=== PATIENT | female | born 1975 | race Caucasian/White ===

== ENCOUNTER 2018-11-15 01:21 | Emergency (ER) | payer MEDICAID ==
[~2018-11-15] VITALS: Ht 152.4 cm; Wt 80.3 kg
[2018-11-15 01:37] VITALS: BP 133/79
--- NOTE | 2018-11-15 01:43 | NUR ---
PT AMBULATED TO BED 6. PROVIDED WITH URINE CUP.
[2018-11-15] MEDS ORDERED: ACETAMINOPHEN 325 MG TAB PO ONE (01:45)
[2018-11-15] MEDS ORDERED: NACL 0.9% 1,000 ML IV ONE (01:45)
--- NOTE | 2018-11-15 01:45 | NUR ---
PT CAME INTO ER WITH C/O OF COUGH AND CONGESTION X 2 DAYS. PT STATED THAT SHE WENT TO THE CLINIC YESTERDAY AND WAS GIVEN MEDICATION BUT STATES SHE HAS NO RELIEF. PT HAS A HEADACHE, PAIN LEVEL 8/10 AT THIS TIME. PT IS A/OX4. ER MD MADE AWARE OF STATUS, SAFETY MEASURES IN PLACE. BED RAILS UP X 1.
--- NOTE | 2018-11-15 01:50 | NUR ---
FLU SWAB WAS DONE TP PT. PT TOLERATED WELL. SPECIMEN WAS SENT TO LAB.
--- NOTE | 2018-11-15 01:52 | NUR ---
DR. JOE EVALUATING PT BEDSIDE
[2018-11-15 02:19] LABS: BASOPHILS % (AUTO) 0.3 % (0.0-2.0); EOSINOPHILS % (AUTO) 0.2 % (0.0-4.0); HEMATOCRIT 40.9 % (36-48); HEMOGLOBIN 13.6 g/dL (12.0-16.0); LYMPHOCYTES # (AUTO) 1.4 K/uL (2.5-16.5); LYMPHOCYTES % (AUTO) 12.4 % (20.5-51.1); MEAN CORPUSCULAR HEMOGLOBIN 29 pg (27-31); MEAN CORPUSCULAR HGB CONC 33 g/dL (33-37); MEAN CORPUSCULAR VOLUME 87.5 fL (80-94); MONOCYTES % (AUTO) 8.9 % (1.7-9.3); NEUTROPHILS # (AUTO) 8.7 K/uL (1.8-7.7); NEUTROPHILS % (AUTO) 78.2 % (42.2-75.2); PLATELET COUNT (AUTO) 261 K/uL (140-450); RED BLOOD CELL COUNT(AUTO) 4.67 MIL/uL (4.20-5.40); RED CELL DISTRIBUTION WIDTH 13.4 % (11.6-13.7); WHITE BLOOD COUNT (AUTO) 11.1 K/uL (4.8-10.8)
[2018-11-15 02:20] LABS: APPEARANCE,URINE CLEAR (CLEAR); BILIRUBIN,URINE NEGATIVE (NEGATIVE); BLOOD, URINE TRACE-I (NEGATIVE); COLOR,URINE YELLOW (YELLOW); LEUKOCYTE ESTERASE ,URINE TRACE (NEGATIVE); NITRITE, URINE NEGATIVE (NEGATIVE); UGLUCOSE NEGATIVE (NEGATIVE)
[2018-11-15 02:39] LABS: RBC,URINE 0-5 /HPF (0-5)
[2018-11-15 02:58] LABS: ALBUMIN 3.6 g/dL (3.4-5.0); CREATININE 0.9 mg/dL (0.6-1.3); TOTAL BILIRUBIN 0.3 mg/dL (0.0-1.0)
[2018-11-15 03:03] LABS: POTASSIUM 3.4 mmol/L (3.5-5.1)
[2018-11-15 03:04] LABS: ANION GAP 16.4 (8-16)
[2018-11-15 03:25] VITALS: BP 134/74
--- NOTE | 2018-11-15 03:25 | NUR ---
Patient discharged with v/s stable. Written and verbal after care instructions given and explained. Patient alert, oriented and verbalized understanding of instructions. Ambulatory with steady gait. All questions addressed prior to discharge. ID band removed. Patient advised to follow up with PMD. Rx of NORCO AND ZOFRAN given. Patient educated on indication of medication including possible reaction and side effects. Opportunity to ask questions provided and answered.
== END 2018-11-15 03:25 | disposition home or self-care (01) ==
LOC: MED 01:21
DX: R05 Cough (principal); R50.9 Fever, unspecified; R51 Headache
CPT/HCPCS: 36415; 71045; 80053; 81001; 85025; 87086; 87804; 99284; J7030; Q0092

== ENCOUNTER 2020-01-15 09:48 | Inpatient (IN) | payer MEDICAID, SELFPAY ==
[~2020-01-15] VITALS: Ht 160 cm; Wt 64.4 kg
[2020-01-15 09:55] VITALS: BP 147/79
[2020-01-15] MEDS ORDERED: KETOROLAC 30 MG/ML VIAL IVP ONE (10:20)
--- NOTE | 2020-01-15 10:40 | NUR ---
RSV, FLU, AND COVID SWAB SENT TO LAB
[2020-01-15 11:09] LABS: BASOPHILS # (AUTO) 0.1 K/uL (0.00-0.22); EOSINOPHILS % (AUTO) 0.1 % (0.0-4.0); HEMATOCRIT 40.2 % (36-48); HEMOGLOBIN 13.3 g/dL (12.0-16.0); LYMPHOCYTES # (AUTO) 1.5 K/uL (2.5-16.5); LYMPHOCYTES % (AUTO) 15.1 % (20.5-51.1); MEAN CORPUSCULAR HEMOGLOBIN 30 pg (27-31); MEAN CORPUSCULAR HGB CONC 33 g/dL (33-37); MEAN CORPUSCULAR VOLUME 88.8 fL (80-94); MONOCYTES # (AUTO) 0.8 K/uL (0.8-1.0); MONOCYTES % (AUTO) 8.2 % (1.7-9.3); NEUTROPHILS # (AUTO) 7.6 K/uL (1.8-7.7); NEUTROPHILS % (AUTO) 75.6 % (42.2-75.2); PLATELET COUNT (AUTO) 216 K/uL (140-450); RED BLOOD CELL COUNT(AUTO) 4.52 MIL/uL (4.20-5.40); RED CELL DISTRIBUTION WIDTH 13.9 % (11.6-13.7); WHITE BLOOD COUNT (AUTO) 10.1 K/uL (4.8-10.8)
--- NOTE | 2020-01-15 11:10 | NUR ---
44 YEAR OLD FEMALE COMPLAINS OF SHORTNESS OF BREATHE X 1 WEEK. PT STATES ALSO THIS MORNING SHE STARTED TO HAVE CHEST PAIN AND FEVER. PT STATES SHE TOOK IBUPROFEN PRIOR TO ARRIVAL. PT AOX4, BREATHING EVEN AND UNLABORED, SKIN WARM AND DRY. BED IN LOWEST POSITION, LOCKED, BED RAIL UPX1. PMH - ASTHMA ALLERGIES - NKA
[2020-01-15 11:18] LABS: APPEARANCE,URINE HAZY (CLEAR); BILIRUBIN,URINE NEGATIVE (NEGATIVE); BLOOD, URINE 1+ (NEGATIVE); COLOR,URINE DARK YELLOW (YELLOW); LEUKOCYTE ESTERASE ,URINE 1+ (NEGATIVE); NITRITE, URINE NEGATIVE (NEGATIVE); UGLUCOSE NEGATIVE (NEGATIVE)
[2020-01-15 11:22] LABS: LACTATE DEHYDROGENASE 165 U/L (81-234)
[2020-01-15 11:23] LABS: PROTHROMBIN TIME 9.9 secs (10.8-13.4)
[2020-01-15 11:29] LABS: ALBUMIN 3.3 g/dL (3.4-5.0); ANION GAP 17.1 (8-16); CARBON DIOXIDE 22.8 mmol/L (21-32); CREATININE 1.1 mg/dL (0.6-1.3); TOTAL BILIRUBIN 0.3 mg/dL (0.0-1.0)
[2020-01-15 11:33] LABS: POTASSIUM 2.9 mmol/L (3.5-5.1)
--- NOTE | 2020-01-15 11:33 | NUR ---
potassium 2.9, lactic acid 2.1-- critical value received from lab. Dr Thrasher made aware
[2020-01-15] MEDS ORDERED: POTASSIUM CHLORIDE 10 MEQ TABER PO ONE (11:35)
[2020-01-15 11:37] LABS: C-REACTIVE PROTEIN QUANT 3.7 mg/dL (0.0-0.9); RSV NEGATIVE (NEGATIVE)
--- NOTE | 2020-01-15 12:00 | NUR ---
pt alert and awake, breathing even and unlabored
[2020-01-15] MEDS ORDERED: LEVOFLOXACIN 500 MG/D5W PREMIX 100 ML IV ONE ×2 (12:05→12:25)
[2020-01-15] MEDS ORDERED: MORPHINE SULFATE 2 MG/ML SYR IVP ONE (12:25)
[2020-01-15] MEDS ORDERED: metroNIDAZOLE 500 MG/NS PREMIX 100 ML IV ONE (12:25)
[2020-01-15 12:41] LABS: RBC,URINE 0-5 /HPF (0-5)
[2020-01-15] MEDS ORDERED: HYDROcodone/APAP 7.5/325 MG 1 TAB PO PRN (14:00)
[2020-01-15] MEDS ORDERED: ONDANSETRON 4 MG/2 ML VIAL IM/IVP PRN (14:00)
[2020-01-15] MEDS ORDERED: DOCUSATE SODIUM 100 MG GELCAP PO PRN (14:00)
[2020-01-15] MEDS ORDERED: ZOLPIDEM 5 MG TAB PO PRN (14:00)
--- NOTE | 2020-01-15 14:00 | NUR ---
pt alert and awake, breathing even and unlabored. on phone
[2020-01-15] MEDS: NACL 0.9% 1,000 ML IV SCH (14:22)
[2020-01-15 14:37] LABS: CHOL/HDL RATIO 3.8 (1-4.5); FREE T4 (FREE THYROXINE) 0.88 ng/dL (0.76-1.46); MAGNESIUM 1.7 mg/dL (1.8-2.4); PHOSPHORUS 2.6 mg/dL (2.5-4.9); THYROID STIMULATING HORMONE 1.55 uIU/mL (0.34-3.74)
[2020-01-15 14:43] LABS: BARBITURATE, URINE NEGATIVE ng/ml (NEG <=200); BENZODIAZEPINE, URINE NEGATIVE ng/mL (NEG <=200); CANNABINOID, URINE NEGATIVE ng/mL (NEG <=50); COCAINE, URINE NEGATIVE ng/mL (NEG <=300); OPIATE, URINE NEGATIVE ng/mL (NEG <=2000); PHENCYCLIDINE SCREEN,URINE NEGATIVE ng/mL (NEG <=25)
[2020-01-15 16:00] VITALS: BP 148/73
--- NOTE | 2020-01-15 16:00 | NUR ---
RECEIVED PATIENT FROM ED NURSE FOR ADMISSION AND CONTINUITY OF CARE. HEAD TO TOE ASSESSMENT. AAOX4, GERMAN SPEAKING. RESPIRATIONS EVEN AND UNLABORED, ROOM AIR. RESP 24. DENIES SOB. VISIBLE CHEST RISE AND FALL NOTED. ON TELE MONITORING. ABD SOFT AND NONTENDER. REGULAR DIET. SKIN WARM, DRY, AND INTACT. IV IN THE RIGHT FA G20 RUNNING NS AT 80 ML/HR. IVF RUNNING WELL. AMBULATORY. SAFETY MEASURES IN PLACE. DROPLET PRECAUTION FOR COVID-19 R/O. BED IN LOW POSITION. CALL LIGHT IS WITHIN REACH. WILL CONTINUE TO MONITOR.
--- NOTE | 2020-01-15 16:00 | NUR ---
Patient will be admitted to care of Dr Pickard. Admited to tele. Will go to room 102B. Belongings list completed. Report to Princess UNDERWOOD.
--- NOTE | 2020-01-15 16:05 | NUR ---
BP IS 148/73, HR 90, O2SAT 99% RA, TEMP 98.9 TEMPORAL, RESP 24, UNLABORED. DENIES PAIN. DENIES SOB. MRSA NARES SWAB COLLECTED. GIVEN 2 APPLE JUICES AND WARM BLANKET.
--- NOTE | 2020-01-15 17:00 | NUR ---
Note ajay in ED - 01/15/20 at 1736 by MARTI Patient will be admitted to care of Dr Pickard. Admited to tele. Will go to room 102B. Belongings list completed. Report to Princess UNDERWOOD.
[2020-01-15] MEDS ORDERED: ALBUTEROL HFA MDI 90 MCG/ACTUATION 8 GM INH PRN (17:25)
--- NOTE | 2020-01-15 17:44 | NUR ---
PATIENT IS RESTING AT THIS TIME. NO SIGNS OF DISTRESS NOTED. BED IN LOW POSITION. CALL LIGHT IS WITHIN REACH. WILL CONTINUE TO MONITOR
--- NOTE | 2020-01-15 18:04 | NUR ---
HUNG ROCEPHIN VIA IVPB. GIVEN MEDICATION EDUCATION. PATIENT VERBALIZED UNDERSTANDING. GIVEN 2 APPLE JUICE BOXES AND SURGICAL MASK. PATIENT DENIES SOB AND PAIN AT THIS TIME
--- NOTE | 2020-01-15 18:37 | NUR ---
PATIENT IS EATING DINNER AT THIS TIME. NO SIGNS OF DISTRESS NOTED. BED IN LOW POSITION. CALL LIGHT IS WITHIN REACH. WILL CONTINUE TO MONITOR
--- NOTE | 2020-01-15 19:21 | NUR ---
ENDORSED PATIENT TO THE JAVA CONSULTANT SCRAP IRON LOADER DANII FOR CONTINUITY OF CARE. PATIENT IS IN STABLE CONDITION
--- NOTE | 2020-01-15 19:22 | NUR ---
RECD. RESTING IN BED, AWAKE, A/OX4, OBESE. RESPIRATION EVEN AND UNLABORED. 02 SAT 0N ROOM AIR , 96%. IV OF NS AT 80 ML/HR INFUSING RIGHT AC G20. AMBULATORY TO THE BATHROOM. WAATCHING TV. PLAN OF CARE FOR THE SHIFT DISCUSSED. VERBALIZED UNDERSTANDING. DENIES PAIN 0/10.
[2020-01-15 20:15] VITALS: BP 120/65
[2020-01-15] MEDS: ACETAMINOPHEN 325 MG TAB PO PRN (20:33)
--- NOTE | 2020-01-15 20:33 | NUR ---
TEMPERATURE - 104.7 F, MEDICATED WITH TYLENOL. COOLING MEASURES GIVEN.
[2020-01-15] MEDS: guaiFENesin DM 200/20 MG-10 ML 10 ML UDC PO PRN (20:34)
--- NOTE | 2020-01-15 21:35 | NUR ---
RESTING COMFORTABLY IN BED. T - 100.4. CONTINUE COOLING MEASURES.
[2020-01-16] VITALS: BP 113/63
--- NOTE | 2020-01-16 01:00 | NUR ---
IV INFILTRATED, NEW IV LINE INSERTED BY KJ OWUSU AT THE LEFT HAND G24.
[2020-01-16] MEDS: NACL 0.9% 1,000 ML IV SCH ×3 (02:26→14:56)
[2020-01-16] MEDS: ACETAMINOPHEN 325 MG TAB PO PRN ×3 (02:31→20:36)
--- NOTE | 2020-01-16 02:31 | NUR ---
TEMPERATURE CHECKED - 101.5 F, MEDICATED WITH TYLENOL PER MD ORDER.
--- NOTE | 2020-01-16 03:30 | NUR ---
TEMPERATURE - 100.0 RESTING IN BED COMFORTABLY.
[2020-01-16 04:00] VITALS: BP 116/83
--- NOTE | 2020-01-16 06:00 | NUR ---
TEMPERATURE CHECKED - 100.5 F, CONTINUED COOLING MEASURES.
--- NOTE | 2020-01-16 07:00 | NUR ---
RESTING IN BED, NO RESPIRATORY DISTRESS NOTED DURING SHIFT. WILL ENDORSE TO AM SHIFT NURSE FOR CONTINUITY OF CARE.
--- NOTE | 2020-01-16 07:05 | NUR ---
RECEIVED REPORT FROM NIGHT NURSE. PATIENT IN BED ASLEEP, EASILY AROUSABLE BY NAME OR TOUCH. RESPIRATIONS EVEN AND UNLABORED. NO S/S OF DISTRESS NOTED. IV INTACT AND PATENT TO RIGHT HAND. PATIENT ON ROOM AIR. PLANS OF CARE DISCUSSED. CALL LIGHT WITHIN REACH. SAFETY MEASURES IN PLACE.
[2020-01-16 07:14] LABS: ANION GAP 16.4 (8-16); CARBON DIOXIDE 21.9 mmol/L (21-32); POTASSIUM 3.3 mmol/L (3.5-5.1); TOTAL BILIRUBIN 0.3 mg/dL (0.0-1.0)
[2020-01-16 08:00] VITALS: BP 121/64
[2020-01-16] MEDS: ZINC SULF 220 MG CAP PO SCH (09:00)
[2020-01-16] MEDS: AZITHROMYCIN 250 MG TAB PO SCH (09:00)
[2020-01-16] MEDS: MAGNESIUM OXIDE 400 MG TAB PO SCH (09:01)
[2020-01-16] MEDS: ASCORBIC ACID 500 MG TAB PO SCH (09:01)
[2020-01-16] MEDS: POTASSIUM CHLORIDE 10 MEQ TABER PO PRN (09:02)
--- NOTE | 2020-01-16 09:52 | NUR ---
ROTARY ROCK DRILLING MACHINE OPERATOR NOTE: SW WAS UNABLE TO MEET PATIENT AT BEDSIDE DUE TO MEDICAL CONDITION. SW ATTEMPTED TO CONTACT PATIENT'S DARIELA WHITE [phone] TO COMPLETE ASSESSMENT. SW LEFT VM. JOE LEFT VM WITH PATIENT'S CONTACT INFORMATION [phone]. JOE ALSO CONTACTED PARTITION ASSEMBLER TO BE TRANSFERRED TO ROOM PHONE, BUT PATIENT DID NOT ANSWER. JOE WILL FOLLOW UP.
--- NOTE | 2020-01-16 10:00 | NUR ---
AM MEDICATIONS GIVEN. PATIENT IS STABLE. NO S/S OF DISTRESS NOTED.
--- NOTE | 2020-01-16 10:02 | NUR ---
PATIENT HAS BEEN SCREENED AND CATEGORIZED MODERATE NUTRITION RISK. PATIENT WILL BE SEEN WITHIN 3-5 DAYS OF ADMISSION. 01/18/20-01/20/[address]
[2020-01-16 12:00] VITALS: BP 124/78
--- NOTE | 2020-01-16 12:09 | NUR ---
DISCHARGE PLANNING: THIS IS A 44 Y/O FEMALE PATIENT FROM HOME, WHO CAME IN DUE TO GENERALIZED WEAKNESS, BODY PAIN, COUGH, SORE THROAT AND SHORTNESS OF BREATH. NO PAST MEDICAL HISTORY. INITIAL DIAGNOSIS OF PNA, R/O COVID. COVID PENDING. CURRENT LABS INCLUDE NA 3.3, MAG 1.7, CRP 11.6, FIBRINOGEN 496, D DIMER 194. ON AZITHROMYCIN, DECADRON AND ROCEPHIN. PULMO CONSULT IN PLACE. CXR ON ADMISSION SHOWED PNEUMONIA. DC PLAN BACK TO HOME ONCE STABLE. Addendum: 01/20/20 at 0846 by Patricia Murdock CM FAXED PATIENTS CLINICALS TO [facility] WILL FOLLOW UP Addendum: 01/20/20 at 1053 by Patricia Petersoneda CM SPOKE TO PRIYANKA FROM [facility] [phone] PATIENT IS SELF PAY. I CALLED THE PATIENTS CHRISTOPHER LYLE [phone] USING [employer]GRAM RESIDENT #[id number] TO EXPLAIN PRICING OF HOME O2. HE AGREED TO PAYING OUT OF POCKET. PRIYANKA FROM [facility] IS GOING TO REACH OUT THE TO COLLECT PAYMENT. WILL FOLLOW UP Addendum: 01/20/20 at 1151 by Patricia Murdock CM SPOKE TO PATIENT [phone] USING CONCRETE BUILDING ASSEMBLER SHE STATED THAT SHE IS FEELING WELL AND DOES NOT NEED THE HOME O2. SHE STATED THAT SHE HAS NOT BEEN ON OXYGEN SINCE YESTERDAY MORNING. REACHED OUT TO CARMEN SAUCEDO TO CLARIFY THIS WAS CORRECT. DR. BARRERA AGREED THAT THE PATIENT NO LONGER REQUIRES TO BE SENT HOME WITH HOME O2. CONTACTED PRIYANKA FROM [facility] TO NOTIFY HE CAN CANCEL THIS ORDER. PATIENT WILL BE DISCHARGED HOME TODAY WITH NO NEEDS.
[2020-01-16 12:25] LABS: T4 (THYROXINE) 4.8 ug/dL (4.5-12.0)
--- NOTE | 2020-01-16 13:00 | NUR ---
PATIENT DENIES ANY SOB OR DISCOMFORT. PATIENT AAOX4. CALL LIGHT WITHIN REACH.
--- NOTE | 2020-01-16 15:00 | NUR ---
PATIENT IN STABLE CONDITION. PATIENT AAOX4. IVF INFUSING WELL.
[2020-01-16 16:00] VITALS: BP 121/81
--- NOTE | 2020-01-16 18:00 | NUR ---
ROUNDS MADE. OBSERVED PATIENT'S IV IS OUT. PATIENT STATED SHE DID NOT NOTICE HER IV IS OUT. CANULA INTACT. NO BLEEDING NOTED.
--- NOTE | 2020-01-16 19:15 | NUR ---
REPORT GIVEN TO NIGHT NURSE. ENDORSED THAT PATIENT HAS NO IV ACCESS. PATIENT IN STABLE CONDITION.
--- NOTE | 2020-01-16 19:16 | NUR ---
RECEIVED BEDSIDE SHIFT REPORT FROM DAY SHIFT NURSE. PATIENT IS AAOX4, AMBULATORY, AND ABLE TO MAKE NEEDS KNOWN. RESPIRATIONS ARE EVEN AND UNLABORED TO ROOM AIR. CURRENT O2 SAT AT 95%. SKIN IS WARM, DRY, AND INTACT. ABDOMEN IS SOFT AND NON-TENDER. PT PULLED OUT IV ACCESS. WILL REINSERT. PT DENIES ANY PAIN OR DISCOMFORT AT THIS TIME. PLAN OF CARE DISCUSSED. PT VERBALIZED UNDERSTANDING. SAFETY MEASURES IN PLACE, CALL LIGHT WITHIN REACH. WILL CONTINUE TO MONITOR.
[2020-01-16 20:00] VITALS: BP 132/85
--- NOTE | 2020-01-16 20:40 | NUR ---
VITAL SIGNS TAKEN. TEMP 101.2, COMPLAINS OF HEADACHE 10/10. OTHER VS STABLE. SCHEDULED MEDS GIVEN. PRN TYLENOL GIVEN WELL. COOLING MEASURES IN PLACE. PT KEPT COMFORTABLE. CALL LIGHT WITHIN REACH. WILL CONTINUE TO MONITOR.
--- NOTE | 2020-01-16 22:22 | NUR ---
PT IN BED RESTING. NEW IV ACCESS INSERTED ON RIGHT AC G22. PT STILL WARM. COOLING MEASURES IN PLACE. CALL LIGHT WITHIN REACH. WILL CONTINUE TO MONITOR.
[2020-01-17] VITALS: BP 135/80
--- NOTE | 2020-01-17 00:07 | NUR ---
PT AFEBRILE TEMP 99.6. CONTINUED COOLING MEASURES. PT DENIES ANY PAIN OR DISCOMFORT AT THIS TIME. SAFETY MEASURES IN PLACE. WILL CONTINUE TO MONITOR.
--- NOTE | 2020-01-17 02:09 | NUR ---
PT ASLEEP. RESPIRATIONS EVEN AND UNLABORED. PT NOT IN DISTRESS. PT KEPT SAFET AND COMFORTABLE. CALL LIGHT WITHIN REACH. WILL CONTINUE TO MONITOR.
[2020-01-17] MEDS: NACL 0.9% 1,000 ML IV SCH ×2 (03:26→16:47)
[2020-01-17] MEDS: ACETAMINOPHEN 325 MG TAB PO PRN ×3 (03:50→20:50)
--- NOTE | 2020-01-17 03:50 | NUR ---
VITAL SIGNS TAKEN. TEMP 102.3. OTHER VITAL SIGNS STABLE. PRN TYLENOL GIVEN. COOLING MEASURES IN PLACE. NO OTHER COMPLAINTS MADE. SAFETY MEASURES IN PLACE. CALL LIGHT WITHIN REACH. WILL CONTINUE TO MONITOR.
[2020-01-17 04:00] VITALS: BP 142/72
--- NOTE | 2020-01-17 07:08 | NUR ---
ENDORSED TO DAY SHIFT NURSE FOR CONTINUITY OF CARE. PATIENT IN STABLE CONDITION.
--- NOTE | 2020-01-17 07:10 | NUR ---
RECEIVED REPORT FROM NIGHT NURSE. PATIENT IS AOX4. CONTINUES TO BE AFEBRILE, PER NIGHT RN LAST TEMP 101 AT 6AM. TYLENOL NOT DUE YET. PATIENT STABLE. NO S/S OF DISTRESS NOTED. PATIENT WITH IV RIGHT AC 22G INTACT AND PATENT. WILL CONTINUE TO MONITOR. PLANS OF CARE DISCUSSED. CALL LIGHT WITHIN REACH.
[2020-01-17 07:29] LABS: ALBUMIN 2.8 g/dL (3.4-5.0); ANION GAP 15.2 (8-16); CARBON DIOXIDE 22.1 mmol/L (21-32); CREATININE 1.1 mg/dL (0.6-1.3); POTASSIUM 3.3 mmol/L (3.5-5.1); TOTAL BILIRUBIN 0.2 mg/dL (0.0-1.0)
[2020-01-17 08:00] VITALS: BP 126/76
[2020-01-17] MEDS ORDERED: LOVENOX 1MG/KG Q12H SUBQ SCH (09:00)
[2020-01-17] MEDS: ASCORBIC ACID 500 MG TAB PO SCH (09:09)
[2020-01-17] MEDS: POTASSIUM CHLORIDE 10 MEQ TABER PO PRN (09:09)
[2020-01-17] MEDS: AZITHROMYCIN 250 MG TAB PO SCH (09:09)
[2020-01-17] MEDS: MAGNESIUM OXIDE 400 MG TAB PO SCH (09:09)
[2020-01-17] MEDS: ZINC SULF 220 MG CAP PO SCH (09:09)
[2020-01-17] MEDS: ENOXAPARIN 60 MG/0.6 ML SYR SUBQ SCH ×2 (09:21→20:25)
--- NOTE | 2020-01-17 09:40 | NUR ---
PATIENT IS AWAKE, ALERT AND ORIENTED X4. DENIES ANY SOB. C/O HEADACHE, TYLENOL GIVEN. NO DISTRESS NOTED AT THIS TIME. CALL LIGHT WITHIN REACH.
[2020-01-17 09:51] LABS: BASOPHILS % (AUTO) 0.5 % (0.0-2.0); HEMATOCRIT 38.9 % (36-48); HEMOGLOBIN 12.6 g/dL (12.0-16.0); LYMPHOCYTES # (AUTO) 1.3 K/uL (2.5-16.5); LYMPHOCYTES % (AUTO) 14.1 % (20.5-51.1); MEAN CORPUSCULAR HEMOGLOBIN 29 pg (27-31); MEAN CORPUSCULAR HGB CONC 33 g/dL (33-37); MEAN CORPUSCULAR VOLUME 89.6 fL (80-94); MONOCYTES # (AUTO) 0.6 K/uL (0.8-1.0); MONOCYTES % (AUTO) 6.7 % (1.7-9.3); NEUTROPHILS # (AUTO) 7.1 K/uL (1.8-7.7); NEUTROPHILS % (AUTO) 78.7 % (42.2-75.2); PLATELET COUNT (AUTO) 178 K/uL (140-450); RED BLOOD CELL COUNT(AUTO) 4.34 MIL/uL (4.20-5.40); RED CELL DISTRIBUTION WIDTH 13.5 % (11.6-13.7); WHITE BLOOD COUNT (AUTO) 9.1 K/uL (4.8-10.8)
[2020-01-17] MEDS ORDERED: MAGNESIUM CHLORIDE 64 MG TABEC PO SCH (11:00)
[2020-01-17] MEDS ORDERED: POTASSIUM CHLORIDE 10 MEQ TABER PO SCH (11:00)
[2020-01-17 12:00] VITALS: BP 127/67
--- NOTE | 2020-01-17 12:30 | NUR ---
PATIENT EATING LUNCH. NO S/S OF DISTRESS NOTED. PATIENT AFEBRILE.
--- NOTE | 2020-01-17 14:30 | NUR ---
PATIENT REMAINS STABLE. NO S/S OF DISTRESS NOTED. ABLE TO MAKE NEEDS KNOWN. CALL LIGHT WITHIN REACH.
[2020-01-17 16:00] VITALS: BP 107/72
--- NOTE | 2020-01-17 16:00 | NUR ---
PATIENT REMAINS STABLE. VS STABLE. PATIENT AFEBRILE. NEEDS MET AT THIS TIME.
--- NOTE | 2020-01-17 18:30 | NUR ---
PATIENT IN STABLE CONDITION. NO S/S OF DISTRESS NOTED. CALL LIGHT WITHIN REACH.
--- NOTE | 2020-01-17 19:30 | NUR ---
RECEIVED REPORT FORM DAYSHIFT NURSE FOR CONTINUITY OF CARE. PT IS AOX4 SKIN INTACT AND ABLE TO AMBULATE INDEPENDENTLY. PT IS ON ROOM AIR. AND HAS NO C/O OF PAIN OR DISTRESS NOTED.IV SITE IS R AC 22 GUAGE INTACT AND RUNNING NORMAL SALINE AT 80MLS/HR. ALL DROPLET PRECAUTIONS IN PLACE.
[2020-01-17 20:00] VITALS: BP 137/87
--- NOTE | 2020-01-17 20:00 | NUR ---
PT IN BED WITH C/O OF HEADACHE. PT GIVEN ORDERED LOVENOX SHOT SQ. EDUCATION WAS PROVIDED TO PT REGARDING PURPOSES AND SIDE EFFECTS OF MEDICATION. PT VERBALIZED UNDERSTANDING. V/S FOLLOWS: T 103.7 P 95 RR 22 B/P 137/87 02 93%. PT ALSO C/O OF MILD TO MODERATE HEADACHE AND WAS GIVEN TYLENOL FOR HEADACHE AND FEVER. COOLING MEASURES APPLIED. ALL OTHER STATED REQUESTS ATTENDED. WILL MONITOR FOR PAIN RELIEF AND DECREASED IN TEMPERATURE.
[2020-01-18] VITALS: BP 131/53
--- NOTE | 2020-01-18 | NUR ---
PT IN BED SLEEPING, COOLING MEASURES APPLIED WITH ICE PACKS. NORMAL SALINE RUNNING AT 80MLS/HR ORDERED. PT RR EVEN AND UNLABORED ON ROOM AIR. V/S FOLLOWS: T 100.3 P 89 R 20 B/P 131/53 02 93% ON ROOM AIR. ALL DROPLET PRECAUTIONS IN PLACE.
[2020-01-18 04:00] VITALS: BP 143/85
--- NOTE | 2020-01-18 04:35 | NUR ---
PT UP TO TOILET WITH STANDBY ASSISTANCE. , PT C/O HEADACHE AND WAS GIVEN TYLENOL.PO/PRN FOR FEVER AND INCREASED TEMP.V/S FOLLOWS: T 97.4 P 86 R 20 B/P 111/64 02 98% WITH 2 LITERS N/C. COOLING MEASURES PROVIDED FOR PT , WILL CONTINUE TO MONITOR TEMP. ALLL DROPLET PRECAUTIONS IN PLACE. Addendum: 01/18/20 at 0648 by Lashae Nolasco RN WRONG VITAL SIGNS T 102.1 P 98 R 92$ 02 92% ON ROOM AIR AND B/P IS 143/85.
[2020-01-18] MEDS: NACL 0.9% 1,000 ML IV SCH (05:06)
[2020-01-18] MEDS: ACETAMINOPHEN 325 MG TAB PO PRN ×3 (05:07→23:09)
[2020-01-18] MEDS: guaiFENesin DM 200/20 MG-10 ML 10 ML UDC PO PRN ×2 (05:10→22:47)
[2020-01-18 07:08] LABS: BASOPHILS % (AUTO) 0.4 % (0.0-2.0); HEMATOCRIT 38.9 % (36-48); HEMOGLOBIN 12.8 g/dL (12.0-16.0); LYMPHOCYTES # (AUTO) 1.5 K/uL (2.5-16.5); LYMPHOCYTES % (AUTO) 15.9 % (20.5-51.1); MEAN CORPUSCULAR HEMOGLOBIN 29 pg (27-31); MEAN CORPUSCULAR HGB CONC 33 g/dL (33-37); MEAN CORPUSCULAR VOLUME 89.3 fL (80-94); MONOCYTES # (AUTO) 0.6 K/uL (0.8-1.0); MONOCYTES % (AUTO) 6.2 % (1.7-9.3); NEUTROPHILS # (AUTO) 7.1 K/uL (1.8-7.7); NEUTROPHILS % (AUTO) 77.5 % (42.2-75.2); PLATELET COUNT (AUTO) 204 K/uL (140-450); RED BLOOD CELL COUNT(AUTO) 4.35 MIL/uL (4.20-5.40); RED CELL DISTRIBUTION WIDTH 13.4 % (11.6-13.7); WHITE BLOOD COUNT (AUTO) 9.2 K/uL (4.8-10.8)
--- NOTE | 2020-01-18 07:15 | NUR ---
RECEIVED REPORT FROM NIGHT NURSE AT BEDSIDE FOR CONTINUITY OF CARE. PATIENT IS AOX4, MALIAN SPEAKING. NO S/S OF DISTRESS NOTED ON ROOM AIR. PATIENT WITH IV RIGHT AC 22G INTACT AND PATENT INFUSING IVF WELL. WILL CONTINUE TO MONITOR. PLANS OF CARE DISCUSSED. PATIENT VERBALIZED UNDERSTANDING. PATIENT ON DROPLET PRECAUTION FOR COVID, CALL LIGHT WITHIN REACH. WILL CONTINUE TO MONITOR PATIENT.
[2020-01-18 07:36] LABS: ALBUMIN 2.7 g/dL (3.4-5.0); ANION GAP 11.4 (8-16); CARBON DIOXIDE 26.6 mmol/L (21-32); CREATININE 1.2 mg/dL (0.6-1.3); TOTAL BILIRUBIN 0.2 mg/dL (0.0-1.0)
[2020-01-18 07:41] LABS: PHOSPHORUS 2.5 mg/dL (2.5-4.9)
[2020-01-18 08:00] VITALS: BP 136/58
[2020-01-18] MEDS: MAGNESIUM OXIDE 400 MG TAB PO SCH (08:00)
[2020-01-18] MEDS: ZINC SULF 220 MG CAP PO SCH (08:00)
[2020-01-18] MEDS: ASCORBIC ACID 500 MG TAB PO SCH (08:00)
[2020-01-18] MEDS: ENOXAPARIN 60 MG/0.6 ML SYR SUBQ SCH ×2 (08:01→20:40)
--- NOTE | 2020-01-18 08:05 | NUR ---
ORDERED MEDICATIONS GIVEN. PATIENT TOLERATED THEM WELL. VERBALIZED PLAN OF CARE. SHE VERBALIZED UNDERSTANDING. VS WNL. TEMP 98.9. PATIENT CURRENTLY SITTING UP IN BED EATING BREAKFAST. DROPLET PRECAUTIONS IN PLACE, CALL LIGHT WITHIN REACH, WILL CONTINUE TO MONITOR PATIENT.
--- NOTE | 2020-01-18 09:28 | NUR ---
DR MURO IN TO SEE THE PATIENT. WILL WAIT FOR HER ORDERS.
[2020-01-18 12:15] VITALS: BP 122/60
--- NOTE | 2020-01-18 12:50 | NUR ---
Patient sitting up in bed eating lunch. Friend brought in belongings, blankets. Will continue to monitor patient.
[2020-01-18 16:00] VITALS: BP 135/85
--- NOTE | 2020-01-18 16:20 | NUR ---
Patient c/o headache, prn Tylenol given. Patient tolerated it well. Will continue to monitor patient.
--- NOTE | 2020-01-18 18:18 | NUR ---
Patient sitting up eating dinner. No complaints at this time. Call light within reach, will continue to monitor patient and endorse to night time babysitter nurse.
--- NOTE | 2020-01-18 18:40 | NUR ---
Patient still c/o headache, prn pain medication given. Patient tolerated it. No other complaints at this time. Call light within reach, will continue to monitor patient.
--- NOTE | 2020-01-18 19:10 | NUR ---
REPORT GIVEN TO HARDWOOD FLOOR FINISHER NURSE. ENDORSED PAIN REASSESSMENT.
--- NOTE | 2020-01-18 19:11 | NUR ---
RECEIVED REPORT FROM AM NURSE AT BEDSIDE FOR CONTINUITY OF CARE. PATIENT IS AOX4, SINHALA SPEAKING. NO S/S OF DISTRESS NOTED ON ROOM AIR. PATIENT WITH IV RIGHT AC 22G INTACT AND PATENT INFUSING IVF WELL. DENIES PAIN. PATIENT ON DROPLET PRECAUTION FOR COVID, CALL LIGHT WITHIN REACH. WILL CONTINUE TO MONITOR PATIENT.
[2020-01-18 20:00] VITALS: BP 128/79
--- NOTE | 2020-01-18 21:00 | NUR ---
PT IS SITTING UP IN BED, EATING A SANDWICH AND DRINKING JUICE. PT IS STABLE AT THIS TIME. ON RA WITH O2 SAT AT 91%. BREATHING IS UNLABORED. BED IN LOWEST POSITION AND CALL LIGHT WITHIN REACH.
--- NOTE | 2020-01-18 22:40 | NUR ---
PT COUGHING WILL GIVE ROBITUSSIN/ DM PER ORDER PRN
--- NOTE | 2020-01-18 23:00 | NUR ---
PT SATURATION AT 89%. PT PLACED IN PRONE POSITION PER DOCTORS NOTES TO IMPROVE SATURATION. WILL CONTINUE TO MONITOR.
--- NOTE | 2020-01-18 23:46 | NUR ---
PT IS ASLEEP. O2 SAT IS 94% AND BREATHING IS UNLABORED. CHEST RISE AND FALL IS SYMMETRICAL. NO APPARENT SIGNS OF DISTRESS NOTED.
[2020-01-19] VITALS: BP 128/80
--- NOTE | 2020-01-19 02:24 | NUR ---
PT O2 SAT AT 90% AND BREATHING IS UNLABORED. PT PLACED IN PRONE POSITION AGAIN AND O2 SAT NOW AT 91%. PT IS IN STABLE CONDITION, NO SOB, OR COMPLAINTS OF PAIN.
[2020-01-19 04:00] VITALS: BP 129/81
[2020-01-19] MEDS: ACETAMINOPHEN 325 MG TAB PO PRN (04:18)
--- NOTE | 2020-01-19 04:18 | NUR ---
PT TEMP WAS 102. PT GIVEN PARACETAMOL FOR FEVER PRN
[2020-01-19] MEDS: NACL 0.9% 1,000 ML IV SCH ×2 (04:26→06:42)
--- NOTE | 2020-01-19 05:00 | NUR ---
PT IS UP TO THE BATHROOM WITH ASSISTANCE. COOLING MEASURES WERE PROVIDED FOR FEVER. PT WAS GIVEN ICE PACKS UNDERNEATH ARMPITS, ICE WATER, AND ICE PACK FOR HEAD. PT IS BACK IN BED AND LAYING IN SEMI FOWLERS POSITION. WILL CONTINUE TO MONITOR TEMP.
--- NOTE | 2020-01-19 06:52 | NUR ---
PT IS A&O X 4. PT IS AWAKE AND ALERT. RESTING AND CALM IN SEMI FOWLERS POSITION. TEMPERATURE IS 99.7 F. BED IS IN LOWEST POSITION AND CALL LIGHT IS WITHIN REACH.
--- NOTE | 2020-01-19 06:55 | NUR ---
INFORMED DR. GOVEA THAT PT WENT TO 88% o2 sat; PLACED PT ON PRONE POSITION- 88- 90% O2 SAT. DR. GOVEA ORDERED 02 2 LPM VIA NC TO MAINTAIN OP2 SAT > 90%
--- NOTE | 2020-01-19 07:09 | NUR ---
ENDORSED PT TO DAY SHIFT NURSE FOR CONTINUITY OF CARE. PT IS IN STABLE CONDITION AT THIS TIME.
--- NOTE | 2020-01-19 07:10 | NUR ---
RECEIVED REPORT FROM NIGHT NURSE AT BEDSIDE FOR CONTINUITY OF CARE. PATIENT IS AOX4, NORWEGIAN SPEAKING. NO S/S OF DISTRESS NOTED ON 2L O2 VIA NC, O2 AT 93%. PATIENT WITH IV RIGHT AC 22G INTACT AND PATENT INFUSING IVF WELL. WILL CONTINUE TO MONITOR. PLANS OF CARE DISCUSSED. PATIENT VERBALIZED UNDERSTANDING. PATIENT ON DROPLET PRECAUTION FOR COVID, CALL LIGHT WITHIN REACH. WILL CONTINUE TO MONITOR PATIENT.
[2020-01-19 08:00] VITALS: BP 122/70
[2020-01-19 08:09] LABS: BASOPHILS # (AUTO) 0.1 K/uL (0.00-0.22); BASOPHILS % (AUTO) 0.6 % (0.0-2.0); HEMATOCRIT 36.9 % (36-48); HEMOGLOBIN 12.1 g/dL (12.0-16.0); LYMPHOCYTES # (AUTO) 1.6 K/uL (2.5-16.5); LYMPHOCYTES % (AUTO) 13.9 % (20.5-51.1); MEAN CORPUSCULAR HEMOGLOBIN 29 pg (27-31); MEAN CORPUSCULAR HGB CONC 33 g/dL (33-37); MEAN CORPUSCULAR VOLUME 88.4 fL (80-94); MONOCYTES # (AUTO) 0.7 K/uL (0.8-1.0); MONOCYTES % (AUTO) 6.6 % (1.7-9.3); NEUTROPHILS # (AUTO) 8.9 K/uL (1.8-7.7); NEUTROPHILS % (AUTO) 78.9 % (42.2-75.2); PLATELET COUNT (AUTO) 231 K/uL (140-450); RED BLOOD CELL COUNT(AUTO) 4.17 MIL/uL (4.20-5.40); RED CELL DISTRIBUTION WIDTH 13.3 % (11.6-13.7); WHITE BLOOD COUNT (AUTO) 11.2 K/uL (4.8-10.8)
[2020-01-19 08:28] LABS: ALBUMIN 2.7 g/dL (3.4-5.0); ANION GAP 15.2 (8-16); CARBON DIOXIDE 23.3 mmol/L (21-32); CREATININE 0.9 mg/dL (0.6-1.3); MAGNESIUM 1.9 mg/dL (1.8-2.4); PHOSPHORUS 2.1 mg/dL (2.5-4.9); POTASSIUM 3.5 mmol/L (3.5-5.1); TOTAL BILIRUBIN 0.2 mg/dL (0.0-1.0)
[2020-01-19] MEDS: ASCORBIC ACID 500 MG TAB PO SCH (08:35)
[2020-01-19] MEDS: ZINC SULF 220 MG CAP PO SCH (08:35)
[2020-01-19] MEDS: ENOXAPARIN 60 MG/0.6 ML SYR SUBQ SCH ×2 (08:36→21:29)
--- NOTE | 2020-01-19 08:36 | NUR ---
ORDERED MEDICATIONS GIVEN. PATIENT TOLERATED THEM WELL. VERBALIZED PLAN OF CARE. SHE VERBALIZED UNDERSTANDING. VS WNL. TEMP 99.1. PATIENT CURRENTLY SITTING UP IN BED EATING BREAKFAST. DROPLET PRECAUTIONS IN PLACE, CALL LIGHT WITHIN REACH, WILL CONTINUE TO MONITOR PATIENT.
--- NOTE | 2020-01-19 10:05 | NUR ---
PATIENT O2 SAT ON 2L O2 VIA NC 92%, PATIENT AMBULATED TO BATHROOM ON RA, CAME BACK TO BED, O2 SATURATION 88%. NO SOB OR DISTRESS NOTED. PATIENT PUT BACK ON O2 VIA NC. WILL CONTINUE TO MONITOR PATIENT.
[2020-01-19 12:00] VITALS: BP 119/72
--- NOTE | 2020-01-19 12:15 | NUR ---
PATIENT MOVED FROM ROOM 102B TO 125B, PATIENT TOOK ALL OF HER BELONGINGS WITH HER. WILL CONTINUE TO MONITOR PATIENT.
[2020-01-19 16:00] VITALS: BP 120/68
--- NOTE | 2020-01-19 16:10 | NUR ---
SNACKS GIVEN TO PATIENT. TEMP 98.3 TEMPORAL, PATIENT AMBULATED TO BATHROOM, BACK TO BED, ON RA, O2 SATURATION 90%. NO SOB OR DISTRESS AT THIS TIME. PATIENT STATED PREFER TO STAY ON RA. PATIENT AWARE TO CARE RN IF SHE EXPERIENCES SOB OR DISTRESS AND TO PUT BACK ON O2 VIA NC. WILL CONTINUE TO MONITOR PATIENT.
--- NOTE | 2020-01-19 19:14 | NUR ---
REPORT GIVEN TO MARKETING PROPOSAL SPECIALIST NURSE FOR CONTINUITY OF CARE. PATIENT IN STABLE CONDITION.
--- NOTE | 2020-01-19 19:14 | NUR ---
RECEIVED PT. PARTHA , CRISTA MINOR ON O2 SAT MONITOR - O2 SAT WNL . ON TELE MONITOR - SR . DENIES ANY PAIN . IVSITE INTACT AND PATENT . SAFETY MEASURES INPLACE . CALL LIGHT WITHIN REACH. PLAN OF CARE DISCUSSED AND VERBALIZE UNDERSTANDING . WILL CONT. TO MONITOR . AFEBRILE .
[2020-01-19 20:00] VITALS: BP 120/70
--- NOTE | 2020-01-19 22:00 | NUR ---
MADE ROUNDS , NO S/SX OF ACUTE DISTRESS NOTED . O2 SAT WNL . WILL CONT. TO MONITOR.
[2020-01-20] VITALS: BP 122/70
--- NOTE | 2020-01-20 | NUR ---
MADE ROUNDS , NO S/SX OF ACUTE DISTRESS - O2 SAT WNL . WILL CONT. TO MONITOR
--- NOTE | 2020-01-20 02:00 | NUR ---
SLEEPING - CHEST RISE AND FALL EQUALLY . WILL CONT. TO MONITOR.
[2020-01-20 04:00] VITALS: BP 120/75
--- NOTE | 2020-01-20 04:00 | NUR ---
MADE ROUNDS , NO S/SX OF ACUTE DISTRESS NOTED . WILL CONT. TO MONITOR.
--- NOTE | 2020-01-20 06:00 | NUR ---
LAB CALL - LACTIC ACID 2.4 - WILL TEXT TO DR. GOVEA. PT. HAS NO S/SX OF ACUTE DISTRESS AT THIS TIME.
--- NOTE | 2020-01-20 06:10 | NUR ---
TEXTED TO DR. GOVEA THE LACTIC ACID RESULT . DR. GOVEA TEXT BACK HE SAID DR. BARRERA WILL TAKE OVER HIS PT. BECAUSE HE IS OFF SERVICE TODAY .
[2020-01-20 06:21] LABS: BASOPHILS % (AUTO) 0.4 % (0.0-2.0); EOSINOPHILS % (AUTO) 0.2 % (0.0-4.0); HEMATOCRIT 41.1 % (36-48); HEMOGLOBIN 13.4 g/dL (12.0-16.0); LYMPHOCYTES # (AUTO) 2.3 K/uL (2.5-16.5); LYMPHOCYTES % (AUTO) 25.8 % (20.5-51.1); MEAN CORPUSCULAR HEMOGLOBIN 29 pg (27-31); MEAN CORPUSCULAR HGB CONC 33 g/dL (33-37); MEAN CORPUSCULAR VOLUME 89.9 fL (80-94); MONOCYTES % (AUTO) 10.6 % (1.7-9.3); NEUTROPHILS # (AUTO) 5.7 K/uL (1.8-7.7); PLATELET COUNT (AUTO) 327 K/uL (140-450); RED BLOOD CELL COUNT(AUTO) 4.57 MIL/uL (4.20-5.40); RED CELL DISTRIBUTION WIDTH 13.6 % (11.6-13.7)
[2020-01-20 06:38] LABS: ALBUMIN 2.9 g/dL (3.4-5.0); ANION GAP 13.4 (8-16); ASPARTATE AMINOTRANSFERASE 65 U/L (15-37); CARBON DIOXIDE 28.8 mmol/L (21-32); CHLORIDE 102 mmol/L (98-107); GFR ARICAN-AMERICAN 77 mL/min (>90); GLUCOSE 123 mg/dL (74-106); LACTATE DEHYDROGENASE 297 U/L (81-234); MAGNESIUM 2.2 mg/dL (1.8-2.4); PHOSPHORUS 3.3 mg/dL (2.5-4.9); POTASSIUM 3.2 mmol/L (3.5-5.1); SODIUM SERUM 141 mmol/L (136-145); TOTAL BILIRUBIN 0.3 mg/dL (0.0-1.0); UREA NITROGEN, BLOOD 16 mg/dL (7-18)
--- NOTE | 2020-01-20 07:00 | NUR ---
TEXTED TO DR. BARRERA ABOUT LACTIC ACID RESULT - ENDORSE TO AM SHIFT NURSE.
--- NOTE | 2020-01-20 07:25 | NUR ---
ENDORSED TO AM SHIFT - PT - STABLE .
[2020-01-20 08:00] VITALS: BP 132/84
--- NOTE | 2020-01-20 08:01 | NUR ---
DR. BARRERA IN HOSPITAL, MADE AWARE OF PATIENT LACTIC ACID LEVEL 2.4, GAVE NEW ORDERS FOR 1 LITER BOLUS OF NORMAL SALINE AT 70 ML/HR. ORDERS NOTED AND CARRIED OUT.
[2020-01-20] MEDS ORDERED: NACL 0.9% 1,000 ML IV SCH (08:05)
[2020-01-20] MEDS: ASCORBIC ACID 500 MG TAB PO SCH (08:14)
[2020-01-20] MEDS: POTASSIUM CHLORIDE 10 MEQ TABER PO PRN (08:15)
[2020-01-20] MEDS: ZINC SULF 220 MG CAP PO SCH (08:16)
[2020-01-20] MEDS: ENOXAPARIN 60 MG/0.6 ML SYR SUBQ SCH (08:17)
[2020-01-20] MEDS: ACETAMINOPHEN 325 MG TAB PO PRN (08:30)
--- NOTE | 2020-01-20 10:00 | NUR ---
PATIENT RESTING IN BED IN NO S/S RESPIRATORY DISTRESS, NO COMPLAINTS OF PAIN AT THIS TIME. PATIENT AMBULATED SELF TO RESTROOM AND URINATED. ALL NEEDS MET, CALL LIGHT WITHIN REACH, WILL CONTINUE TO MONITOR. DROPLET PRECAUTIONS FOLLOWED.
[2020-01-20 12:00] VITALS: BP 128/77
--- NOTE | 2020-01-20 12:00 | NUR ---
PATIENT STILL RESTING IN BED, IN NO S/S RESPIRATORY DISTRESS, NO C/O OF PAIN. ALL NEEDS MET, CALL LIGHT WITHIN REACH, WILL CONTINUE TO MONITOR. DROPLET PRECAUTIONS FOLLOWED.
[2020-01-20] MEDS ORDERED: CHOL400T12 PO (12:02)
[2020-01-20] MEDS ORDERED: DEXA6TAB1 PO (12:02)
[2020-01-20] MEDS ORDERED: ZINC220C28 PO (12:02)
[2020-01-20] MEDS ORDERED: VITC500 PO (12:02)
[2020-01-20] MEDS ORDERED: ASPI-1822 PO (12:02)
[2020-01-20] MEDS ORDERED: POTASSIUM CHLORIDE 10 MEQ TABER PO SCH (12:30)
[2020-01-20 15:27] VITALS: BP 128/77
--- NOTE | 2020-01-20 16:10 | NUR ---
PATIENT LEFT THE FACILITY WITH ALL BELONGINGS, DISCHARGE PAPERWORK AND INSTRUCTIONS. PATIENT IN NO S/S RESPIRATORY DISTRESS, STABLE. IV, ID BANDS, AND FORESTRY AID REMOVED. ESCORTED VIA WHEELCHAIR TO CAR WHERE SHE WAS PICKED UP BY FAMILY MEMBER.
== END 2020-01-20 16:20 | disposition home or self-care (01) | DRG 720 ==
LOC: EEVIPCON 09:48 → MED 09:48 → MTU 13:27 → MMU 14:52
PROVIDERS: ADMIT Family Medicine; ATTEND Family Medicine
DX: A41.89 Other specified sepsis (principal); U07.1 COVID-19; J96.00 Acute respiratory failure, unspecified whether with hypoxia or hypercapnia; E44.1 Mild protein-calorie malnutrition; N39.0 Urinary tract infection, site not specified; E87.6 Hypokalemia; J12.89 Other viral pneumonia; E83.42 Hypomagnesemia; Z56.0 Unemployment, unspecified; Z68.25 Body mass index [BMI] 25.0-25.9, adult; Z79.899 Other long term (current) drug therapy
CPT/HCPCS: 36415; 36600; 71045; 80053; 80305; 81001; 82150; 82550; 82553; 82728; 82803; 83036; 83605; 83615; 83690; 83735; 83880; 84100; 84436; 84439; 84443; 84479; 84484; 85025; 85379; 85384; 85610; 85651; 85730; 86140; 87040; 87081; 87086; 87420; 87804; 93005; 96365; 96375; 99291; J0696; J1644; J1650; J1885; J1956; J7030; J7060; Q0092; U0003-CS

== ENCOUNTER 2020-11-21 19:34 | Emergency (ER) | payer MEDICAID, SELFPAY ==
[~2020-11-21] VITALS: Ht 154.9 cm; Wt 84.4 kg
[~2020-11-21 19:34] MED LIST: ASPI-1822 PO; CHOL400T12 PO; DEXA6TAB1 PO; VITC500 PO; ZINC220C28 PO
[2020-11-21 19:40] VITALS: BP 136/84
--- NOTE | 2020-11-21 19:40 | NUR ---
TO BED AMBULATORY
--- NOTE | 2020-11-21 20:27 | NUR ---
45 Y/O CAME TO THE ED C/O CHEST PAIN, EAR PAIN AND ABDOMINAL PAIN. PT STATES THAT SHE HAS 6/10 SHARP CHEST PAIN THAT RADIATES TO HER UPPER ABDOMEN. DENIES N/V/D; SKIN IS PINK/WARM/DRY; AAOX4 WITH EVEN AND STEADY GAIT; LUNGS CLEAR BL; HR EVEN AND REGULAR; PT DENIES ANY FEVER, CP, OR COUGH AT THIS TIME; PATIENT STATES PAIN OF 0/10 AT THIS TIME; VSS; PATIENT POSITIONED FOR COMFORT; HOB ELEVATED; BEDRAILS UP X2; BED DOWN. ER MD MADE AWARE OF PT STATUS. ALLERGIES: CATS PMH: ASTHMA
--- NOTE | 2020-11-21 20:30 | NUR ---
RAD at bedside
--- NOTE | 2020-11-21 20:35 | NUR ---
rocio swab collected and handed to recyclable products sorterLashae.
--- NOTE | 2020-11-21 20:44 | NUR ---
lab at bedside for blood draw.
[2020-11-21 21:02] LABS: BASOPHILS % (AUTO) 0.6 % (0.0-2.0); EOSINOPHILS # (AUTO) 0.3 K/uL (0-0.4); EOSINOPHILS % (AUTO) 3.5 % (0.0-4.0); HEMATOCRIT 37.4 % (36-48); HEMOGLOBIN 12.4 g/dL (12.0-16.0); LYMPHOCYTES # (AUTO) 2.3 K/uL (2.5-16.5); LYMPHOCYTES % (AUTO) 30.8 % (20.5-51.1); MEAN CORPUSCULAR HEMOGLOBIN 29 pg (27-31); MEAN CORPUSCULAR HGB CONC 33 g/dL (33-37); MEAN CORPUSCULAR VOLUME 87.3 fL (80-94); MONOCYTES # (AUTO) 0.7 K/uL (0.8-1.0); MONOCYTES % (AUTO) 8.8 % (1.7-9.3); NEUTROPHILS # (AUTO) 4.2 K/uL (1.8-7.7); NEUTROPHILS % (AUTO) 56.3 % (42.2-75.2); PLATELET COUNT (AUTO) 256 K/uL (140-450); RED BLOOD CELL COUNT(AUTO) 4.28 MIL/uL (4.20-5.40); RED CELL DISTRIBUTION WIDTH 13.8 % (11.6-13.7); WHITE BLOOD COUNT (AUTO) 7.5 K/uL (4.8-10.8)
[2020-11-21 21:14] LABS: ANION GAP 12.8 (8-16); CARBON DIOXIDE 26.9 mmol/L (21-32); CREATININE 0.7 mg/dL (0.6-1.3); POTASSIUM 3.7 mmol/L (3.5-5.1)
[2020-11-21 22:10] VITALS: BP 136/84
--- NOTE | 2020-11-21 22:11 | NUR ---
Patient discharged with v/s stable. Written and verbal after care instructions given and explained. Patient verbalized understanding. Ambulatory with steady gait. ID band removed. All questions addressed prior to discharge. Advised to follow up with PMD.
== END 2020-11-21 22:10 | disposition home or self-care (01) ==
LOC: MED 19:34
DX: F41.9 Anxiety disorder, unspecified (principal); Z20.822 Contact with and (suspected) exposure to COVID-19; J02.9 Acute pharyngitis, unspecified; H92.03 Otalgia, bilateral; R07.9 Chest pain, unspecified; R51.9 Headache, unspecified; J45.909 Unspecified asthma, uncomplicated; Z79.899 Other long term (current) drug therapy; Z79.82 Long term (current) use of aspirin
CPT/HCPCS: 36415; 71045; 80048; 84484; 85025; 93005; 99285

== ENCOUNTER 2021-05-08 20:59 | Emergency (ER) | payer MEDICAID ==
[~2021-05-08] VITALS: Ht 157.5 cm; Wt 88.5 kg
[2021-05-08 21:12] VITALS: BP 146/91
--- NOTE | 2021-05-08 21:15 | NUR ---
PT IS IN TENT.
[2021-05-08] MEDS ORDERED: ALBU0.0912 IH (21:54)
[2021-05-08] MEDS ORDERED: BPM/118S31 PO (21:54)
--- NOTE | 2021-05-08 22:03 | NUR ---
NOVEL SAMPLE COLLECTED FROM PT NARES AND HANDED TO SOWMYA FROM LAB.
--- NOTE | 2021-05-08 22:09 | NUR ---
SEE COMPLETE ASSESSMENT.
[2021-05-08 22:11] VITALS: BP 146/91
--- NOTE | 2021-05-08 22:11 | NUR ---
Patient discharged with v/s stable. Written and verbal after care instructions given and explained. Patient alert, oriented and verbalized understanding of instructions. Ambulatory with steady gait. All questions addressed prior to discharge. ID band removed. Patient advised to follow up with PMD. Rx of ALBUTEROL SULFATE, BROMFED DM COUGH SYRUP given. Patient educated on indication of medication including possible reaction and side effects. Opportunity to ask questions provided and answered.
== END 2021-05-08 22:11 | disposition home or self-care (01) ==
LOC: MED 20:59
DX: J06.9 Acute upper respiratory infection, unspecified (principal); Z20.822 Contact with and (suspected) exposure to COVID-19; J45.909 Unspecified asthma, uncomplicated
CPT/HCPCS: 99283; U0003

== ENCOUNTER 2021-11-08 04:45 | Emergency (ER) | payer MEDICAID ==
[~2021-11-08] VITALS: Ht 154.9 cm; Wt 88.0 kg
[~2021-11-08 04:45] MED LIST changes: +ALBU0.0912 IH; +BPM/118S31 PO
[2021-11-08 04:54] VITALS: BP 122/49
--- NOTE | 2021-11-08 05:02 | NUR ---
Patient ambulated to bed 8 with her family
--- NOTE | 2021-11-08 05:12 | NUR ---
Dr. Guallpa at bedside to exam patient.
[2021-11-08] MEDS ORDERED: predniSONE 20 MG TAB PO ONE (05:25)
[2021-11-08] MEDS ORDERED: KETOROLAC 30 MG/ML VIAL IM ONE (05:25)
[2021-11-08] MEDS ORDERED: ALBUTEROL SULFATE/IPRATROPIU 3 ML SOL IH ONE (05:25)
--- NOTE | 2021-11-08 05:30 | NUR ---
RT at bedside for breathing treatment.
[2021-11-08] MEDS ORDERED: ALBU0.0912 IH (05:33)
[2021-11-08] MEDS ORDERED: PRED20TA5 PO (05:33)
[2021-11-08 05:58] VITALS: BP 119/71
--- NOTE | 2021-11-08 05:58 | NUR ---
Patient discharged with v/s stable. Written and verbal after care instructions given and explained. Patient alert, oriented and verbalized understanding of instructions. Ambulatory with to car. All questions addressed prior to discharge. ID band removed. Patient advised to follow up with PMD. Rx of Albuterol and Prednisone given. Patient educated on indication of medication including possible reaction and side effects. Opportunity to ask questions provided and answered.
== END 2021-11-08 05:58 | disposition home or self-care (01) ==
LOC: MED 04:45
DX: J45.901 Unspecified asthma with (acute) exacerbation (principal); R51.9 Headache, unspecified; M79.604 Pain in right leg; M79.605 Pain in left leg; Z79.899 Other long term (current) drug therapy; Z79.82 Long term (current) use of aspirin
CPT/HCPCS: 94640; 96372; 99283; J1885; J7512

== ENCOUNTER 2021-11-11 10:14 | Emergency (ER) | payer MEDICAID ==
[~2021-11-11] VITALS: Ht 154.9 cm; Wt 87.5 kg
[~2021-11-11 10:14] MED LIST changes: +PRED20TA5 PO
--- NOTE | 2021-11-11 10:25 | NUR ---
Patient ambulated with steady gait to bed 3.
[2021-11-11 10:30] VITALS: BP 154/88
--- NOTE | 2021-11-11 10:54 | NUR ---
46 y/o female, c/o sob, cough, diffuclty breathing, cp that started monday. pt states she came monday and was given medication, no relief. denies nausea, vomiting, diarrhea. skin is pink/warm/dry. a&o x4 with even and steady gait. lungs clear bl o2 100% ra, heart rate even and regular nsr 66. pt denies dysuria, hematuria, urinary frequency or retention, or anyone sick in the household with the same symptoms. pt states pain is 8/10 at this time. patient positioned for comfort. hob elevated. bed down. ermd made aware of pt. pmh: asthma, allergy: shrimp, fish (swelling) med: albuterol sulfate, advil 2 po (no relief with both)
[2021-11-11 12:03] LABS: BASOPHILS % (AUTO) 0.2 % (0.0-2.0); HEMATOCRIT 37.4 % (36-48); HEMOGLOBIN 12.4 g/dL (12.0-16.0); LYMPHOCYTES # (AUTO) 1.2 K/uL (2.5-16.5); MEAN CORPUSCULAR HEMOGLOBIN 29 pg (27-31); MEAN CORPUSCULAR HGB CONC 33 g/dL (33-37); MEAN CORPUSCULAR VOLUME 86.5 fL (80-94); MONOCYTES # (AUTO) 0.5 K/uL (0.8-1.0); MONOCYTES % (AUTO) 9.8 % (1.7-9.3); NEUTROPHILS # (AUTO) 3.4 K/uL (1.8-7.7); PLATELET COUNT (AUTO) 274 K/uL (140-450); RED BLOOD CELL COUNT(AUTO) 4.33 MIL/uL (4.20-5.40); WHITE BLOOD COUNT (AUTO) 5.1 K/uL (4.8-10.8)
[2021-11-11 12:13] LABS: ALBUMIN 3.2 g/dL (3.4-5.0); ANION GAP 11.1 (8-16); ASPARTATE AMINOTRANSFERASE 25 U/L (15-37); CARBON DIOXIDE 26.4 mmol/L (21-32); CHLORIDE 105 mmol/L (98-107); CREATININE 0.7 mg/dL (0.6-1.3); GFR ARICAN-AMERICAN 116 mL/min (>90); GLUCOSE 295 mg/dL (74-106); LIPASE 63 U/L (73-393); POTASSIUM 3.5 mmol/L (3.5-5.1); SODIUM SERUM 139 mmol/L (136-145); TOTAL BILIRUBIN 0.1 mg/dL (0.0-1.0)
[2021-11-11 12:53] LABS: UREA NITROGEN, BLOOD 15 mg/dL (7-18)
[2021-11-11] MEDS ORDERED: ALBUTEROL 0.083% 2.5 MG/3 ML NEBU INH ONE (13:30)
[2021-11-11] MEDS ORDERED: KETOROLAC 30 MG/ML VIAL IM ONE (13:30)
[2021-11-11] MEDS ORDERED: ROBAC PO (13:36)
[2021-11-11] MEDS ORDERED: NAPR-54 PO (14:07)
[2021-11-11 14:16] VITALS: BP 123/74
--- NOTE | 2021-11-11 14:16 | NUR ---
Patient discharged with v/s stable. Written and verbal after care instructions given and explained. Patient alert, oriented and verbalized understanding of instructions. Ambulatory with steady gait. All questions addressed prior to discharge. ID band removed. Patient advised to follow up with PMD. Rx of naproxen, guaifenesin-codeine (sent) given. Patient educated on indication of medication including possible reaction and side effects. Opportunity to ask questions provided and answered.
== END 2021-11-11 14:16 | disposition home or self-care (01) ==
LOC: EEVIPCON 10:14 → MED 10:14
DX: J20.9 Acute bronchitis, unspecified (principal); J45.909 Unspecified asthma, uncomplicated; Z79.899 Other long term (current) drug therapy
CPT/HCPCS: 36415; 71045; 80053; 83690; 84484; 85025; 85379; 93005; 94640; 96372; 99285; J1885; J7613

== ENCOUNTER 2021-11-18 09:29 | Emergency (ER) | payer MEDICAID ==
[~2021-11-18] VITALS: Ht 154.4 cm; Wt 87.3 kg
[~2021-11-18 09:29] MED LIST changes: +NAPR-54 PO; +ROBAC PO
[2021-11-18 09:30] VITALS: BP 149/67
--- NOTE | 2021-11-18 09:39 | NUR ---
PT AMB TO BED 12. HANDED ON URINE CUP.
[2021-11-18] MEDS ORDERED: DICYCLOMINE HCL LIQUID 20 MG, ALUMINUM HYD/MAG/SIMETHICONE 30 ML, LIDOCAINE VISCOUS 2% ... PO ONE ×3 (10:35)
[2021-11-18] MEDS ORDERED: MECLIZINE 25 MG TAB PO ONE (10:35)
--- NOTE | 2021-11-18 10:35 | NUR ---
46 y/o female, c/o dizzy, non productive cough, headache for 3 days. denies head injury, loc or syncope. pt also states she is having a weird taste in her mouth with abd discomfort. skin is pink/warm/dry. a&o x4 with even and steady gait. lungs clear bl, heart rate even and regular. pt denies dysuria, hematuria, urinary frequency or retention, or anyone sick in the household with the same symptoms. pt states pain is 8/10 at this time. patient positioned for comfort. hob elevated. bed down. ermd made aware of pt. pmh: asthma allergy: fish, shellfish (throat closes, hives, facial swelling) med: denies
--- NOTE | 2021-11-18 10:40 | NUR ---
lab at bedside
[2021-11-18] MEDS ORDERED: ALUMINUM HYD/MAG/SIMETHICONE 30 ML UDC ONE (10:44)
[2021-11-18] MEDS ORDERED: DICYCLOMINE HCL LIQUID 10 MG/5 ML UDC ONE (10:44)
[2021-11-18 10:49] LABS: BASOPHILS # (AUTO) 0.1 K/uL (0.00-0.22); BASOPHILS % (AUTO) 0.8 % (0.0-2.0); EOSINOPHILS # (AUTO) 0.3 K/uL (0-0.4); EOSINOPHILS % (AUTO) 2.6 % (0.0-4.0); HEMATOCRIT 40.3 % (36-48); HEMOGLOBIN 13.4 g/dL (12.0-16.0); LYMPHOCYTES # (AUTO) 4.1 K/uL (2.5-16.5); LYMPHOCYTES % (AUTO) 33.5 % (20.5-51.1); MEAN CORPUSCULAR HEMOGLOBIN 28 pg (27-31); MEAN CORPUSCULAR HGB CONC 33 g/dL (33-37); MEAN CORPUSCULAR VOLUME 84.8 fL (80-94); MONOCYTES # (AUTO) 0.8 K/uL (0.8-1.0); MONOCYTES % (AUTO) 6.5 % (1.7-9.3); NEUTROPHILS # (AUTO) 6.9 K/uL (1.8-7.7); NEUTROPHILS % (AUTO) 56.6 % (42.2-75.2); PLATELET COUNT (AUTO) 367 K/uL (140-450); RED BLOOD CELL COUNT(AUTO) 4.76 MIL/uL (4.20-5.40); WHITE BLOOD COUNT (AUTO) 12.2 K/uL (4.8-10.8)
[2021-11-18 11:03] LABS: ALBUMIN 3.2 g/dL (3.4-5.0); ANION GAP 11.7 (8-16); CARBON DIOXIDE 24.9 mmol/L (21-32); CREATININE 0.7 mg/dL (0.6-1.3); POTASSIUM 3.6 mmol/L (3.5-5.1); TOTAL BILIRUBIN 0.3 mg/dL (0.0-1.0)
--- NOTE | 2021-11-18 11:05 | NUR ---
X-Ray at bedside.
[2021-11-18] MEDS ORDERED: FAMO-90 PO (11:23)
[2021-11-18] MEDS ORDERED: MECL-303 PO (11:23)
[2021-11-18 11:40] VITALS: BP 149/67
--- NOTE | 2021-11-18 11:40 | NUR ---
Patient discharged with v/s stable. Written and verbal after care instructions given and explained. Patient alert, oriented and verbalized understanding of instructions. Ambulatory with steady gait. All questions addressed prior to discharge. ID band removed. Patient advised to follow up with PMD. Rx of famotidine, meclizine hcl (sent) given. Patient educated on indication of medication including possible reaction and side effects. Opportunity to ask questions provided and answered.
== END 2021-11-18 11:40 | disposition home or self-care (01) ==
LOC: MED 09:29
DX: B34.9 Viral infection, unspecified (principal); J45.909 Unspecified asthma, uncomplicated; Z79.899 Other long term (current) drug therapy; Z79.1 Long term (current) use of non-steroidal anti-inflammatories (NSAID); Z79.82 Long term (current) use of aspirin; Z91.013 Allergy to seafood
CPT/HCPCS: 36415; 71045; 80053; 81002; 81025; 85025; 93005; 99285; J8597; Q0092

== ENCOUNTER 2023-12-22 10:05 | Emergency (ER) | payer MEDICAID ==
[~2023-12-22] VITALS: Ht 154.9 cm; Wt 90.7 kg
[~2023-12-22 10:05] MED LIST changes: -BPM/118S31 PO; +BROM118S70 PO; +FAMO-90 PO; +MECL-303 PO; +NAPR-337 PO; -NAPR-54 PO
[2023-12-22 10:14] VITALS: BP 130/84; PULSE 86; RESP 16; TEMP 98.7; O2SAT 98
[2023-12-22 11:05] LABS: BASOPHILS % (AUTO) 0.8 % (0.0-2.0); EOSINOPHILS # (AUTO) 0.4 K/uL (0-0.4); EOSINOPHILS % (AUTO) 6.8 % (0.0-4.0); HEMATOCRIT 40.5 % (36-48); HEMOGLOBIN 13.7 g/dL (12.0-16.0); LYMPHOCYTES # (AUTO) 1.9 K/uL (2.5-16.5); LYMPHOCYTES % (AUTO) 36.7 % (20.5-51.1); MEAN CORPUSCULAR HEMOGLOBIN 30 pg (27-31); MEAN CORPUSCULAR HGB CONC 34 g/dL (33-37); MEAN CORPUSCULAR VOLUME 87.5 fL (80-94); MONOCYTES # (AUTO) 0.5 K/uL (0.8-1.0); MONOCYTES % (AUTO) 9.5 % (1.7-9.3); NEUTROPHILS # (AUTO) 2.4 K/uL (1.8-7.7); NEUTROPHILS % (AUTO) 46.2 % (42.2-75.2); PLATELET COUNT (AUTO) 242 K/uL (140-450); RED BLOOD CELL COUNT(AUTO) 4.63 MIL/uL (4.20-5.40); RED CELL DISTRIBUTION WIDTH 13.3 % (11.6-13.7); WHITE BLOOD COUNT (AUTO) 5.2 K/uL (4.8-10.8)
[2023-12-22] MEDS: ACETAMINOPHEN 325 MG TAB PO ONE (11:13)
[2023-12-22] MEDS: KETOROLAC 30 MG/ML VIAL IM ONE (11:14)
[2023-12-22 11:16] LABS: ANION GAP 12.5 (8-16); CALCIUM 8.6 mg/dL (8.5-10.1); CARBON DIOXIDE 26.2 mmol/L (21-32); CREATININE 0.7 mg/dL (0.6-1.3); POTASSIUM 3.7 mmol/L (3.5-5.1)
[2023-12-22 11:25] LABS: ALANINE AMINOTRANSFERASE 43 U/L (12-78); ALBUMIN 3.6 g/dL (3.4-5.0); ALKALINE PHOSPHATASE 144 U/L (50-136); ASPARTATE AMINOTRANSFERASE 26 U/L (15-37); BILIRUBIN,DIRECT 0.1 mg/dL (0.0-0.3); TOTAL BILIRUBIN 0.2 mg/dL (0.0-1.0); TOTAL PROTEIN, SERUM 7.7 g/dL (6.4-8.2)
[2023-12-22 12:15] LABS: FLU A ANTIGEN negative (NEGATIVE); FLU B ANTIGEN NEGATIVE (NEGATIVE)
[2023-12-22] MEDS ORDERED: ACET-10509 PO (12:34)
[2023-12-22] MEDS ORDERED: IBUP-2213 PO (12:34)
[2023-12-22] MEDS ORDERED: ALBU0.0912 IH (12:44)
[2023-12-22 12:46] VITALS: BP 130/84; PULSE 86; RESP 16; TEMP 98.7; O2SAT 98
== END 2023-12-22 12:45 | disposition home or self-care (01) ==
LOC: MED 10:05
DX: J06.9 Acute upper respiratory infection, unspecified (principal); B97.89 Other viral agents as the cause of diseases classified elsewhere; R07.9 Chest pain, unspecified; Z20.822 Contact with and (suspected) exposure to COVID-19; J45.909 Unspecified asthma, uncomplicated; Z79.899 Other long term (current) drug therapy
CPT/HCPCS: 36415; 71045; 80048; 80076; 81025; 83880; 84484; 85025; 87426; 87804; 93005; 96372; 99285; J1885